=== PATIENT | male | born 1980 | race Caucasian/White ===

== ENCOUNTER 2017-03-28 03:55 | Emergency (ER) | payer OTHER ==
[~2017-03-28] VITALS: Ht 172.7 cm; Wt 116.6 kg
[2017-03-28 04:04] VITALS: Ht 172.7 cm; Wt 116.6 kg
--- NOTE | 2017-03-28 09:16 | ERD ---
ER Documentation Chief Complaint Chief Complaint lower abd pain x 3 days on and off HPI Patient is a 36-year-old male who presents ED for concerns of left testicular pain 2 weeks. Patient states over last 3 days his pain has become significantly worse. Patient describes the pain to be constant, states it is currently a 5 out of 10. Patient does admit to left-sided testicular swelling. Patient states he does know that he has an inguinal hernia and it feels "the hernia is wrapped around my testicle". Patient denies any dysuria, frequency, urgency or hematuria. Patient denies any flank pain. Patient denies any fever , chills, nausea, vomiting or abdominal pain. Please note inconsistency with triage note. Patient denies any penile discharge. No recent travel. ROS All systems reviewed and are negative except as per history of present illness. Allergies Allergies: Coded Allergies: No Known Allergy (Unverified , 03/28/17) PMhx/Soc History of Surgery: Yes (PARTIAL PARATHYROID REMOVAL) Anesthesia Reaction: No Hx Neurological Disorder: No Hx Respiratory Disorders: No Hx Cardiac Disorders: No Hx Psychiatric Problems: No Hx Miscellaneous Medical Probl: Yes (THYROID) Hx Alcohol Use: No Hx Substance Use: Yes (OPIATES) Hx Tobacco Use: Yes Smoking Status: Current every day smoker Physical Exam Vitals Vital Signs Date Time Temp Pulse Resp B/P Pulse Ox O2 Delivery O2 Flow Rate FiO2 03/28/17 04:04 97.8 65 20 131/85 98 Physical Exam GENERAL: Well-developed, well-nourished male. Appears in no acute distress. HEAD: Normocephalic, atraumatic. EYES: Pupils are equally reactive bilaterally. EOMs grossly intact. No conjunctival erythema. ENT: Moist mucous membranes. No uvula deviation. No kissing tonsils. NECK: Supple. No meningismus. Normal range of motion of the neck. LUNG: Clear to auscultation bilaterally. No rhonchi, wheezing, rales or coarse breath sounds. HEART: Regular rate and rhythm. No murmurs, rubs or gallops. ABDOMEN: Soft, nontender, and nondistended. Positive bowel sounds in all four quadrants. No rebound tenderness, no guarding. (-) McBurney's point tenderness. No CVA tenderness. MALE GENITALIA: Male nurse present for this part of the exam. Normal, uncircumcised penis without any lesions, masses or deformities. Left-sided scrotal swelling noted. Non-erythematous. Left-sided inguinal hernia noted. No phimosis. No paraphimosis. EXTREMITIES: Equal pulses bilaterally. No peripheral clubbing, cyanosis or edema. No unilateral leg swelling. NEUROLOGIC: Alert and oriented. Moving all four extremities without any difficulty. Normal speech. Steady gait. SKIN: Normal color. Warm and dry. No rashes or lesions. Procedures/MDM MEDICAL DECISION MAKING: This is a 36-year-old male with a history of a left inguinal hernia presents ED for concerns of testicular pain she became significantly worse over the last few days. Vital signs were reviewed. Patient was afebrile. Patient was not hypoxic. Physical exam findings did show left-sided testicular swelling. I spoke to the patient in regards to my concerns including but not limited to testicular torsion, incarcerated hernia, strangulated hernia. Patient stated that he had to leave given that [place] had [place] Explained the risks versus benefits of diagnoses of concern. Patient understood risks including but not limited to infection, testicle loss. Patient stated he still wishes to leave at this time and would return for further workup later today. Patient agreed to sign out AMA. DISCHARGE: At this time, despite my efforts, the patient has decided to leave the emergency room against medical advice (AMA). The patient displays full decision- making capacity. The patient is over the age of 18. The patient exhibits no evidence of altered level of consciousness or alcohol/drug ingestion that would impair his judgment. I have explained to the patient the risks of leaving AMA including, but not limited to permanent disability and/or . The patient has had the opportunity to ask questions about his condition. The patient has been informed that [he/she] may return to the emergency room for care at any time. I have advised the patient to also follow up with his primary care physician JADE. Disclaimer: Inadvertent spelling and grammatical errors are likely due to EHR/ dictation software use and do not reflect on the overall quality of patient care. Also, please note that the electronic time recorded on this note does not necessarily reflect the actual time of the patient encounter. Departure Diagnosis: Primary Impression: Testicular pain, left Condition: Serious Patient Instructions: Testicular Pain, Unclear Cause Additional Instructions: Unable to rule out testicular torsion. You may return at any time for further workup or management of your symptoms. ZEE HUBBARD PA-C Mar 28, 2017 09:16
== END 2017-03-28 07:12 | disposition left against medical advice (07) ==
LOC: FTE 03:55
DX: N50.812 Left testicular pain (principal); F17.210 Nicotine dependence, cigarettes, uncomplicated
CPT/HCPCS: 99282